=== PATIENT | female | born 1950 | race Caucasian/White ===

== ENCOUNTER → 2023-05-01 08:00 | Outpatient (REF) | payer OTHER, SELFPAY | LOC: RAD 08:00 | PROVIDERS: ATTENDING PHYSICIAN Internal Medicine Hematology & Oncology; FAMILY PHYSICIAN Internal Medicine | DX: C50.512 Malignant neoplasm of lower-outer quadrant of left female breast (principal); Z51.89 Encounter for other specified aftercare; D69.6 Thrombocytopenia, unspecified; C79.51 Secondary malignant neoplasm of bone; G89.3 Neoplasm related pain (acute) (chronic); R93.41 Abnormal radiologic findings on diagnostic imaging of renal pelvis, ureter, or bladder | CPT/HCPCS: 71260; 74177; Q9967 ==

== ENCOUNTER 2023-05-01 20:27 | Inpatient (IN) | payer OTHER, SELFPAY ==
[2023-05-01 17:58] VITALS: BP 150/102
--- NOTE | 2023-05-01 19:03 | ED.GENMED ---
History of Present Illness
General
Chief Complaint: Breathing Problem
Source: patient and family (Daughter)
Exam Limitations: other (Patient is deaf, reads lips)
Time Seen by Provider: 05/01/23 18:23
Travel History
Have you had any contact with someone who has COVID-19?: No
Do you have any symptoms of coronavirus? Fever > 100 degrees, chills, cough, shortness of breath, sore throat, loss of taste or smell, muscle aches, or headache?: No
History of Present Illness
History of Present Illness:
This is a 72 year old female that comes in with c/o abnormal CT of chest. Daughter states that she gets a CT of the chest every 6 months. State that she had this done today and then Dr. Vasquez called and told them to come to the ER as she has a
PE. States that they were not given the Results. Patient states that she is SOB with going up the steps. States that she did have diarrhea today a headache 3 days ago and felt dizzy 3 weeks go. Denies headache or dizziness today. Denies any fever,
chills, chest pain, abd pain, nausea, vomiting, urinary burning.
Past History
Past History
ED Past Medical History: Cancer (Breast CA with Mets to the right hip), HTN and Other (Deaf)
ED Past Surgical History: Other (left breast lumpectomy)
Social History
Tobacco: Non-smoker
Alcohol: None
Personal: Other (Seperated)
Living: with family
Employment: Not employed
Review of Systems
Review of Systems
All Other Systems: ROS reviewed and negative except as documented in HPI and ROS
Constitutional: Reports no symptoms; Denies fever or chills
EENT: Reports no symptoms
Respiratory: Reports trouble breathing (going up steps); Denies cough
Cardiac: Reports no symptoms; Denies chest pain
ABD/GI: Reports diarrhea; Denies abdominal pain, nausea or vomiting
: Reports no symptoms; Denies dysuria, frequency or urgency
Musculoskeletal: Reports no symptoms
Skin: Reports no symptoms
Neurological: Reports no symptoms; Denies dizzy or headache
Psychiatric: Reports no symptoms
Phy Exam
General Physical Exam
General Presentation: no apparent distress
General age: appears stated age
General Skin: warm and dry
General Habitus: elderly
General Mental: alert
General Hydration: appears well hydrated
ENT Exam
ENT Exam: TM's normal, pharynx normal and neck supple
Eye Exam
Eye Exam: EOMI
Cardiovascular Exam
Cardiovascular Exam: regular rate/rhythm, no edema and normal peripheral pulses
Pulmonary Exam
Pulmonary Exam: lungs clear, no respiratory distress, no rales, chest non tender, no crackles, no rhonchi, no wheezing and no cough
Gastrointestinal Exam
Gastrointestinal Exam: normal bowel sounds, non tender, soft, no organomegaly, no pulsatile mass and non distended
Musculoskeletal Exam
Musculoskeletal Exam: full ROM and no edema
Skin Exam
Skin Exam: normal color, warm/dry, no rash and no petechia
Scores
Heart Failure Risk
Heart Failure Risk Score: Not Applicable
Course
Orders/Labs/Results
Orders:
Orders
05/01/23 18:54
Complete Blood Count/With Diff Urgent
Comprehensive Metabolic Panel Urgent
PTT Urgent
Prothrombin Time Urgent
TSH Reflex To Free T4 Urgent
Comment: ADDON
05/01/23 19:12
Add On- LAB Urgent
Tests Added?: TSH with free T4
05/01/23 19:13
PTT Urgent
Comment: Obtain baseline before beginning heparin infusion if not already collected
Heparin 6,300 units IV NOW STA
Pharmacy Request to Place See Dose Instructions PO NOW STA
Discontinue all Active Warfarin orders?: Yes
Nursing to Place Non Medication Order As Directed
Physician Order: PTT 6 hours after initial start of Heparin infusion
05/01/23 19:15
Heparin [id number] Units/250 ml 25,000 units in 250 ml IV PER PROTOCOL
Weight to be used for heparin protocol in kilograms (kg):: 78.3
Protocol:: DVT/PE
PTT Goal Range to be used:: PTT 73 to 111 seconds
Order type:: Initial
INITIAL Infusion Dose (UNITS/KG/hr) & then follow protocol:: 18 units/kg/hr
Infusion Dose in UNITS/hr & then follow protocol (UNITS/hr):: 1,400
INFUSION RATE in mL/hr & then follow protocol (mL/hr):: 14
For DVT/PE algorithm, re-bolus for low PTT?: Yes
PTT less than or equal to 64 seconds:: Re-bolus 80 units/kg (max 10,000units). Increase by 300 units/hr
(+ 3mL/hr)
PTT 64.1 to 72.9 seconds:: Re-bolus 40 units/kg (max 5,000 units). Increase by 200 units/hr
(+ 2mL/hr)
PTT 73 to 111 seconds:: Target Range. No change in rate.
PTT 111.1 to 130.9 seconds:: Decrease rate by 200 units/hr (- 2 mL/hr)
PTT 131 to 199.9 seconds:: HOLD for 1 hr. Then decrease by 200 units/hr (- 2mL/hr)
PTT greater than or equal to 200 seconds:: HOLD for 2 hrs & Notify Provider. Then decrease by 300 units/hr
(- 3mL/hr)
Lab follow-up:: Each change, PTT q6h until 2 consecutive are therapeutic. Then
PTT daily.
05/01/23 20:[address] See Dose Instructions IV DIRECTED
Abnormal Lab Results
05/01/23
18:54
WBC 4.1 L 10^3/uL
(4.8-10.8)
RBC 2.79 L 10^6/uL
(4.20-5.40)
Hgb 10.6 L g/dL
(12.0-16.0)
Hct 30.1 L %
(37.0-47.0)
MCV 107.9 H fL
(81.0-99.0)
MCH 38.0 H pg
(27.0-31.0)
Basophils % 2.2 H %
(0-2)
BUN 21 H mg/dl
(7-17)
Creatinine 1.2 H mg/dL
(0.6-1.0)
Glucose 105 H mg/dl
(70-99)
05/01/23 18:54
05/01/23 18:54
wbc SLIGHTLY LOW. H/H low. Anemia, Dehydration. Glucose nonfasting. PT 13.1 with INR 1.0
Vital Signs
Initial and Last Documented VS:
Initial Vital Signs
Temp Pulse Resp BP Pulse Ox
98.2 F 109 18 150/102 94
05/01/23 17:58 05/01/23 17:58 05/01/23 17:58 05/01/23 17:58 05/01/23 17:58
Last Documented Vital Signs
Temp Pulse Resp BP Pulse Ox
98.2 F 109 18 150/102 94
05/01/23 17:58 05/01/23 17:58 05/01/23 17:58 05/01/23 17:58 05/01/23 17:58
MDM/Problems Addressed
Differential Diagnosis Includes:
Bilateral PE,
MDM/Problems Addressed:
This is a 72 year old female that comes in with c/o abnormal CT scan. Daughter states that she had her [address] of the chest and they were called and told to come to the ER. States that she has pulmonary embolism.
Will get labs and start IV heparin and admit.
Chronic conditions affecting care: Cancer
Acute Exacerbation and/or Progression of Chronic Illness: Cancer
*Radiology
Radiology exam reviewed: radiology read reviewed (CT out patient today- There are large bilateral central pulmonary emboli. There is stable 5cm blastic osseous metastasis in the posterior aspect of the right ischial tuberosity. There is no evidence
of soft tissue metastasis or malignant adenopathy in the chest abdomen or pelvis. There are stable ) and all reviewed NAD by ED Provider (CT cont- postoperative changes in the left breast. There is cholelithiasis. There are several stable low
density thyroid masses measuring up to 15mm which, if clinically indicated, could be best further evaluated and followed with thyroid ultrasound. )
*Pulse Oximetry
Patient hypoxic: no
*EKG
Interpreted by ED Provider?: NA
Rate: EKG- N/A
*[employer] Interpretation
Rate: tachycardiac
Heart Rate: 100
Rhythm: sinus arrhythmia
*Critical Care Note
Total Time (30-74mins, 75-104mins- exclusive of procedures): Not Applicable
ED Attending Note
-
Portions of this chart may have been created with voice recognition software.� Occasional wrong word or��sound alike� substitutions may have occurred due to the inherent limitations of voice recognition software.
Discharge Plan
Departure
Patient Disposition: Admit
Date of Disposition: 05/01/23
Time of Disposition: 19:16
Admit to: Telemetry
Presentation/result/management discussed w/ accepting MD/DO: Hospitalist
Patient with high blood pressure during this ER visit?: Yes
Condition: Good
Covid-19: Not Applicable
Discharge Problem:
Bilateral pulmonary embolism
Prescriptions:
No Action
losartan-hydrochlorothiazide 100-25 mg Tablet
1 tab PO DAILY
alprazolam 0.5 mg Tablet
0.5 mg PO DAILY PRN (Reason: anxiety)
zolpidem [Ambien] 5 mg Tablet
5 mg PO HS
Ibrance 100 mg Tablet
100 mg PO DAILY
Interventions
Interventions:
*Risk Screen - Suicide Last Done: 05/01/23 17:58
*General Assessment Last Done: 05/01/23 17:58
*Neglect/Abuse Screening Last Done: 05/01/23 17:58
*ED COVID-19 Vaccine History Last Done: 05/01/23 18:00
[2023-05-01 19:06] LABS: % Basophils 2.2 % (0-2); % Eosinophils 3.4 % (0-6); % Immature Granulocytes 0.2 % (0-0.5); % Monocytes 8.9 % (1.7-9.3); % Neutrophils 49.3 % (42.2-75.2); Absolute Basophils 0.1 10^3/uL (0-0.2); Absolute Eosinophils 0.1 10^3/uL (0-0.7); Absolute Lymphocytes 1.5 10^3/uL (1.2-3.4); Absolute Monocytes 0.4 10^3/uL (0.1-0.6); Hematocrit 30.1 % (37.0-47.0); Hemoglobin 10.6 g/dL (12.0-16.0); Mean Corp Hgb Conc. 35.2 g/dL (33.0-37.0); Mean Corpuscular Volume 107.9 fL (81.0-99.0); Mean Platelet Volume 9.8 fL (7.4-10.4); Nucleated Red Blood Cells % 0 %; Platelet Count 232 10^3/uL (130-400); Red Blood Cell Count 2.79 10^6/uL (4.20-5.40); Red Cell Dist. Width 14.3 % (11.5-14.5); White Blood Cell Count 4.1 10^3/uL (4.8-10.8)
[2023-05-01 19:08] VITALS: BMI 30.6
[2023-05-01 19:19] LABS: APTT 27.2 Sec (23.4-35.0); PT 13.1 Sec (11.4-14.6)
[2023-05-01 19:22] LABS: ALT (SGPT) 13 U/L (0-35); AST (SGOT) 21 U/L (14-36); Alkaline Phosphatase 60 U/L (38-126); Blood Urea Nitrogen 21 mg/dl (7-17); Calcium 9.4 mg/dl (8.4-10.2); Carbon Dioxide 27 mmol/L (22-30); Chloride 103 mmol/L (98-107); Estimated Creatinine Clearance 43 ml/min; Glucose 105 mg/dl (70-99); Potassium 4.2 mmol/L (3.5-5.1); Sodium 136 mmol/L (135-145); Total Bilirubin 0.6 mg/dl (0.2-1.3); Total Protein 6.8 g/dl (6.3-8.2)
--- NOTE | 2023-05-01 19:53 | HPS.HSE ---
Family Physician
-
Family Physician: Lauro Maria
Chief Complaint
-
SOB
History of Present Illness
Patient is a 72y F with PMH significant for breast cancer who presents to ED for evaluation of abnormal CT scan. Patient has breast cancer with bony met (to the right ischium) and is followed by Dr. Vasquez. She reports some recent dyspnea
with activity - such as climbing stairs, etc. No chest pain. No prior history of DVT / PE. Patient underwent outpatient CT scan this AM and was noted to have large, bilateral pulmonary emboli. She was called and advised to present to the ED for
admission.
Patient is resting comfortably in the ED in no acute distress.
Patient states that her parents both had history of blood clots.
Medical History
Past Medical History
Past Medical History: Reports Other
Additional Past Medical History:
Metastatic Breast Cancer s/p Lumpectomy, XRT and on Chemo
Hypertension
Anxiety / Insomnia
Past Surgical History: Reports Other
Additional Past Surgical History:
Left Lumpectomy
Social History
Tobacco: Non-smoker
Alcohol: None
Drug: None
Family History
Family History: Other (Mother / Father: Blood clots)
Allergies / Home Medications
Allergies reflects when Allergies were last updated in [facility].
Home Medications with original date entered in [facility]
Allergy/Medication List:
Allergies
Allergy/AdvReac Type Severity Reaction Status Date / Time
No Known Drug Allergies Allergy Unknown Verified 07/17/15 10:28
seasonal Allergy sneezing,runny Uncoded 07/17/15 10:28
nose,itchy
eyes
Home Medications
alprazolam 0.5 mg tablet 0.5 mg PO DAILY PRN anxiety 05/01/23
losartan 100 mg-hydrochlorothiazide 25 mg tablet 1 tab PO DAILY 05/01/23
palbociclib 100 mg tablet (Ibrance) 100 mg PO DAILY 05/01/23
zolpidem 5 mg tablet (Ambien) 5 mg PO HS 05/01/23
Review of Systems
-
History Source: Patient
A 12 point ROS was completed and negative except as noted: Yes
Constitutional: Reports Fatigue; Denies Fever or Chills
Respiratory: Reports Trouble Breathing; Denies Cough
Cardiac: Denies Chest Pain or Palpitations
Abdomen/GI: Denies Abdominal Pain, Nausea, Vomiting or Diarrhea
Musculoskeletal: Denies Joint Pain or Edema
Neurological: Denies Dizzy or Headache
Psych: Denies Depression or Anxiety
Physical Exam
Vital Signs
Vital Signs
Temp Pulse Resp BP Pulse Ox
98.2 F 109 18 150/102 94
05/01/23 17:58 05/01/23 17:58 05/01/23 17:58 05/01/23 17:58 05/01/23 17:58
Physical Exam
General: Other (72y F in no acute distress.)
HEENT: Moist mucous membranes, PERRLA and Other (Deaf.)
Respiratory: Clear; No Wheezes, Rales or Rhonchi
Cardiac: S1/S2 and Regular Rhythm; No Murmur
GI: Soft, Non Tender, Non Distended and Normal Bowel Sounds
Musculoskeletal: No Clubbing, No Cyanosis and No Edema
Neuro: AO x 3
Laboratory Results
-
05/01/23 18:54
05/01/23 18:54
Laboratory Results
PT 13.1 Sec (11.4-14.6) 05/01/23 18:54
INR 1.00 05/01/23 18:54
APTT 27.2 Sec (23.4-35.0) 05/01/23 18:54
Total Bilirubin 0.6 mg/dl (0.2-1.3) 05/01/23 18:54
AST 21 U/L (14-36) 05/01/23 18:54
ALT 13 U/L (0-35) 05/01/23 18:54
Alkaline Phosphatase 60 U/L (38-126) 05/01/23 18:54
Impression/Plan
-
A/P: Patient is a 72y F with PMH significant for metastatic breast cancer who presents to ED after outpatient CT done today shows bilateral pulmonary emboli.
Bilateral Pulmonary Emboli
- Admit to monitored bed for further evaluation and treatment.
- IV heparin infusion for now.
- Follow for any issues with oxygenation, chest pain, dyspnea, etc.
- Check Echo in AM.
- Hematology / Oncology evaluation.
- Suspect that patient will benefit from lifelong anticoagulation given her malignancy and family history of VTE.
- Currently she has remarkably mild symptoms (only BRUNO and fatigue) given clot burden.
Benign Hypertension
- BP elevated in the ED.
- Continue home med regimen.
- Hydralazine as needed for very high blood pressures.
- Adjust regimen as needed for improved control.
Metastatic Breast Cancer
- Stable. No new lesions appreciated on CT scan done this AM.
- Known R ischial tuberosity met is unchanged from prior.
- Patient is on daily Ibrance and receives a chemo infusion once monthly (? agent).
- Continue Ibrance as an inpatient.
- Oncology eval as noted above.
Hearing Loss
- Patient is deaf and communicates primarily by lip-reading.
DVT Prophylaxis: On IV Heparin
Code Status: Full
[2023-05-01 19:58] LABS: TSH Reflex To Free T4 3.03 uIU/ml (0.47-4.68)
[2023-05-01 20:01] VITALS: BP 138/81
[2023-05-01 20:19] VITALS: BP 138/81
[2023-05-01] MEDS: HEPARIN 6300 UNITS IV (20:28)
[2023-05-01] MEDS: HEPARIN 25000 UNITS/250 ML IV (20:28)
[2023-05-01 21:00] VITALS: BP 141/92
[2023-05-01 22:00] VITALS: BP 139/81
[2023-05-01 22:34] VITALS: BP 139/81
[2023-05-01] MEDS: AMBIEN 5 MG PO (23:59)
[2023-05-02] VITALS (9 sets, daily range): BP systolic 116–141; BP diastolic 63–84; PULSE 79; O2SAT 97; BMI 31.4; BMI 30.7
[2023-05-02 01:49] LABS: APTT > 200 Sec (23.4-35.0)
[2023-05-02 06:52] LABS: Hematocrit 30.1 % (37.0-47.0); Hemoglobin 10.6 g/dL (12.0-16.0); Mean Corp Hgb Conc. 35.2 g/dL (33.0-37.0); Mean Corpuscular Hgb 38.3 pg (27.0-31.0); Mean Corpuscular Volume 108.7 fL (81.0-99.0); Mean Platelet Volume 10.1 fL (7.4-10.4); Platelet Count 221 10^3/uL (130-400); Red Blood Cell Count 2.77 10^6/uL (4.20-5.40); Red Cell Dist. Width 14.3 % (11.5-14.5); White Blood Cell Count 4.5 10^3/uL (4.8-10.8)
[2023-05-02 07:16] LABS: Blood Urea Nitrogen 15 mg/dl (7-17); Calcium 8.8 mg/dl (8.4-10.2); Carbon Dioxide 27 mmol/L (22-30); Chloride 107 mmol/L (98-107); Estimated Creatinine Clearance 43 ml/min; Glucose 98 mg/dl (70-99); Potassium 3.6 mmol/L (3.5-5.1); Sodium 137 mmol/L (135-145)
[2023-05-02] MEDS: HYZAAR 100-25 TABLET 1 TAB PO (09:01)
--- NOTE | 2023-05-02 09:11 | CON.ONC ---
Impression
Impression
Metastatic breast cancer (lumpectomy, XRT, Adriamycin 2016, currently on Ibrance)
Monthly Faslodex/[id number] Zometa. Last Faslodex: 04/14/23
Acute bilateral pulmonary emboli
Dyspnea on exertion
Macrocytic anemia
Acute kidney injury
Hearing impairment
Strong family hx of VTE
Plan
Plan
05/01 WBC 4.5, Hgb 10.6, PLT 221
Transfuse as needed to maintain Hgb >7, PLT >20
Last dose Ibrance: 04/30 AM
Continue Ibrance: 1 PO daily for 21 days on, 7 days off, Q28 days
Follow CBC with diff daily, monitor counts
Continue heparin gtt
Wean oxygen as able
ECHO today
Additional lab work has been ordered and pending
APLA testing due to reports of family hx of VTE with outpatient follow up: Eliquis/Coumadin (await APLA panel)
Patient will require lifelong anticoagulation upon discharge. Patient and daughter verbalize understanding.
[facility] office has been updated of clinical status. She is scheduled for follow up with WATSON Rodriguez, 05/11 @ 13:15
We will continue to follow. Await labs.
Patient History
History of Present Illness
Jana Colunga is a hearing-impaired 72 year old female with history of metastatic breast cancer known to Dr. Vasquez with [facility]. She presented to the ER last evening, 04/30, with complaints of mild dyspnea on exertion following an abnormal
outpatient CT. She has routine imaging every 6 months for monitoring of disease progression. CT revealed large, bilateral pulmonary emboli and she was referred to the ER for further evaluation. She notes family history of blood clots. Her daughter
is at bedside assisting with communication. Patient is deaf, however, she can read lips and communicate well. She denies acute distress. She has noticed intermittent dizziness, chills, and a headache which has resolved. She complains of persistent
dry cough. She denies weight loss, poor appetite, N/V/D or bloody stools. Her last dose of Ibrance was taken yesterday morning, 04/30. She receives Zometa [id number] and Faslodex monthly with [facility].
Past-Medical/Surgical History
Metastatic breast cancer (lumpectomy, XRT, Adriamycin 2015, currently on Ibrance w/ monthly Faslodex)
Hypertension
Anxiety/insomnia
Hearing impairment
Left foot surgery
Right elbow fracture
Family hx breast cancer
Patient Medication
Medication Instructions Recorded Confirmed Last Taken Type
Metamucil Fiber Gummies 1 gummy PO DAILY 05/01/23 05/01/23 04/30/23 History
alprazolam 0.5 mg tablet 0.5 mg PO DAILY PRN anxiety 05/01/23 05/01/23 05/01/23 History
losartan 100 1 tab PO DAILY 05/01/23 05/01/23 05/01/23 06:00 History
mg-hydrochlorothiazide 25 mg tablet
ondansetron 4 mg disintegrating 4 mg PO TIDPRN PRN nausea/vomiting 05/01/23 05/01/23 04/29/23 History
tablet
palbociclib 100 mg tablet (Ibrance) 100 mg PO DIRECTED 05/01/23 05/01/23 05/01/23 11:30 History
zolpidem 5 mg tablet (Ambien) 5 mg PO HS PRN sleep 05/01/23 05/01/23 05/01/23 01:00 History
Active Medications
Generic Name Dose Route Start Last Admin
Trade Name Freq PRN Reason Stop Dose Admin
Acetaminophen 650 mg 05/01/23 22:32
Acetaminophen 325 Mg Tablet PO 05/29/23 22:31
Q4HPRN PRN
Mild Pain / Temp > 101
Alprazolam 0.5 mg 05/01/23 22:32
Alprazolam 0.5 Mg Tablet PO 05/29/23 22:31
DAILY PRN
anxiety
HCTZ/Losartan Potassium 1 tab 05/02/23 08:00 05/02/23 09:01
Losartan (100 Mg)/Hydrochlorothiazide (25 Mg) Tablet PO 05/30/23 07:59 1 tab
DAILY ALYX Administration
Heparin Sodium 6,300 units 05/01/23 20:23
Heparin 80 Units/Kg Iv Rebolus IV 05/29/23 20:22
PRN PRN
PTT < OR = 64 seconds
Heparin Sodium 3,100 units 05/01/23 20:24
Heparin 40 Units/Kg Iv Rebolus IV 05/29/23 20:23
PRN PRN
PTT = 64.1 to 72.9 seconds
Heparin Sodium 25,000 units in 250 mls @ 0 mls/hr 05/01/23 19:15 05/01/23 20:28
Heparin 55968 Units/250 Ml IV 250 mls
PER PROTOCOL ALYX Administration
Protocol
Per Protocol
Palbociclib [Ibrance 0 mg 05/02/23 08:00
] 100 Mg Tablet Po PO 05/30/23 07:59
Daily DAILY ALYX
Sodium Chloride 0 flush 05/01/23 23:00
Sodium Chloride 0.9% (Flush) Syringe IV 05/29/23 22:59
PER PROTOCOL ALYX
Zolpidem Tartrate 5 mg 05/01/23 22:32 05/01/23 23:59
Zolpidem Tartrate 5 Mg Tablet PO 05/29/23 22:31 5 mg
HS ALYX Administration
Review of Systems
-
Unable to obtain full review of systems at this time due to: Language Barrier (hearing impaired)
History Source: Patient, Family, Coordinated Provider and Records
Constitutional: Reports Chills; Denies Fever, Weight Loss or Night Sweats
EENT: Reports No Symptoms
Respiratory: Reports Cough (dry, nonproductive)
Cardiac: Reports No Symptoms
GI: Reports No Symptoms
Breast: Reports N/A
: Reports No Symptoms
Musculoskeletal: Reports No Symptoms
Skin: Reports No Symptoms
Neuro: Reports No Symptoms
Endocrine: Reports No Symptoms
Hematologic/Lymphatic: Reports No Symptoms
Allergy / Immunology: Reports No Symptoms
Psych: Reports No Symptoms
Physical Exam
-
Patient is resting comfortably on the stretcher. She denies acute distress. She has not been on anticoagulation in the past. She is requesting to use the commode.
General: Well Developed, Well Nourished, No Apparent Distress, Comfortable, Conversant, Appears Chronically Ill and Obese
HEENT: Negative Jaundice
Cardiology: S1, S2 and Other (Rate: 80s)
Pulmonary: Other (coarse, diminished, scattered wheezes, 1L oxygen via nasal cannula )
GI: Normal Bowel Sounds
Genito-Urinary: Deferred by me
Musculoskeletal: No Cyanosis, No Edema and Other (negative Chepe's sign)
Extremities: Pulses Present; Negative Phlebitic Signs
Neurology: Non Focal
Skin: Warm, Dry and Other (pallor)
Hematologic / Lymphatic: No Lymphadenopathy and No Petechiae
Psych: Calm
Labs
Lab Results
WBC 4.5 10^3/uL (4.8-10.8) L 05/02/23 06:10
RBC 2.77 10^6/uL (4.20-5.40) L 05/02/23 06:10
Hgb 10.6 g/dL (12.0-16.0) L 05/02/23 06:10
Hct 30.1 % (37.0-47.0) L 05/02/23 06:10
MCV 108.7 fL (81.0-99.0) H 05/02/23 06:10
MCH 38.3 pg (27.0-31.0) H 05/02/23 06:10
MCHC 35.2 g/dL (33.0-37.0) 05/02/23 06:10
RDW 14.3 % (11.5-14.5) 05/02/23 06:10
Plt Count 221 10^3/uL (130-400) 05/02/23 06:10
MPV 10.1 fL (7.4-10.4) 05/02/23 06:10
Abs Immat Gran (auto) 0.0 10^3/uL (0-0.05) 05/01/23 18:54
Absolute Neuts (auto) 2.0 10^3/uL (1.4-6.5) 05/01/23 18:54
Absolute Lymphs (auto) 1.5 10^3/uL (1.2-3.4) 05/01/23 18:54
Absolute Monos (auto) 0.4 10^3/uL (0.1-0.6) 05/01/23 18:54
Absolute Eos (auto) 0.1 10^3/uL (0-0.7) 05/01/23 18:54
Absolute Basos (auto) 0.1 10^3/uL (0-0.2) 05/01/23 18:54
Immature Gran % 0.2 % (0-0.5) 05/01/23 18:54
Neutrophils % 49.3 % (42.2-75.2) 05/01/23 18:54
Lymphocytes % 36.0 % (20.5-51.1) 05/01/23 18:54
Monocytes % 8.9 % (1.7-9.3) 05/01/23 18:54
Eosinophils % 3.4 % (0-6) 05/01/23 18:54
Basophils % 2.2 % (0-2) H 05/01/23 18:54
Creatinine 1.2 mg/dL (0.6-1.0) H 05/02/23 06:10
Vital Signs
Vital Signs
Temp Pulse Resp BP Pulse Ox
98.1 F 76 16 134/77 98
05/02/23 07:00 05/02/23 07:00 05/02/23 07:00 05/02/23 02:00 05/02/23 07:00
05/01/23 CT c/a/p: There are large bilateral central pulmonary emboli.There is stable 5 cm blastic osseous metastasis in the posterior aspect of the right ischial tuberosity, There is no evidence of soft tissue metastasis or malignant adenopathy in
the chest abdomen or pelvis. There are stable postoperative changes in the left breast. There is cholelithiasis. There are several stable low density thyroid masses measuring up to 15 mm which, if clinically indicated, could be best further
evaluated and followed with thyroid ultrasound
[2023-05-02 09:47] LABS: Reticulocyte Count 2.4 % (0.4-2.8)
[2023-05-02 09:57] LABS: INR 1.15; PT 14.5 Sec (11.4-14.6)
[2023-05-02 09:59] LABS: APTT 80.1 Sec (23.4-35.0)
[2023-05-02 10:00] LABS: D-Dimer 1.83 ug/mlFEU (0.00-0.50)
[2023-05-02 10:32] LABS: LDH 270 U/L (120-246)
--- NOTE | 2023-05-02 11:37 | W.PN.HOSP.TC ---
Today's Communication/Plan
-
echo
assess for home O2
CM to [facility] Eliquis
Assessment / Plan
Assessment / Plan
pt is a 72 year old female
Acute Bilateral Pulmonary Emboli--stable--cont IV heparin drip--await echo--apprec heme/onc--CM to [facility] Eliquis
�
Essential Hypertension�- BP elevated in the ED- Continue home med regimen- Hydralazine as needed for very high blood pressures- Adjust regimen as needed for improved control.
Metastatic Breast Cancer- Stable.� No new lesions appreciated on CT scan done this AM- Known R ischial tuberosity met is unchanged from prior- Patient is on daily Ibrance and receives a chemo infusion once monthly (? agent)- Continue Ibrance as an
inpatient- Oncology eval as noted above.
Hearing Loss- Patient is deaf and communicates primarily by lip-reading.
DVT Prophylaxis:� On IV Heparin
Code Status:� Full
Anticipated Discharge: Within 24 hours
Subjective/Interval History
-
Date of Service: May 02, 2023
pt without cp or SOB
Objective Data
-
Labs:
Laboratory Results
05/02/23 05/02/23 05/02/23
01:11 06:00 06:10
WBC 4.5 L
Hgb 10.6 L
Hct 30.1 L
Plt Count 221
PT Cancelled
INR Cancelled
APTT > 200 H* Pending
Sodium 137
Potassium 3.6
Chloride 107
Carbon Dioxide 27
BUN 15
Creatinine 1.2 H
Glucose 98
Calcium 8.8
05/02/23 05/02/23
09:31 15:30
WBC
Hgb
Hct
Plt Count
PT 14.5
INR 1.15
APTT 80.1 H Pending
Sodium
Potassium
Chloride
Carbon Dioxide
BUN
Creatinine
Glucose
Calcium
Vital Signs:
max temp for 24 hours
05/01/23
22:34
Temp 98.4 F
Vital Signs
Temp Pulse Resp BP Pulse Ox
98.4 F 73 15 134/77 96
05/02/23 11:16 05/02/23 11:16 05/02/23 11:16 05/02/23 02:00 05/02/23 11:33
Review of Systems
-
All other systems: Reviewed and negative
Physical Exam
-
General: Well Developed, Well Nourished and No Apparent Distress
HEENT: Normocephalic, Atraumatic and Hearing Impaired (pt deaf and reads lips)
Respiratory: Clear to Auscultation; Negative Wheezes, Rales, Rhonchi or Crackles
Cardiac: Regular Rhythm and S1/S2; Negative Murmur
GI: Soft, Nontender, Nondistended and Normal Bowel Sounds
Musculoskeletal: No Clubbing, No Cyanosis and No Edema
[2023-05-02 11:39] LABS: Folate 18.2 ng/ml (2.76-20)
--- NOTE | 2023-05-02 11:40 | CM ---
Addendum entered by Marilyn Hassan 05/02/23 11:54:
patient daughter updated with coupon and indicated that the cost was acceptable.
Addendum entered by Marilyn Hassan 05/02/23 11:49:
eliquis cost is 90$ for 30 days. CM will provide coupon and update patient and daughter.
Original Note:
Patient seen at bedside with physician. Patient daughter also present. Patient states that she lives with her family in a 3 story home. Patient has no DME at home and per daughter and patient no home O2. In the past she has had an inhaler only.
Patient PCP is Dr. Breen and they use the [facility] on [facility]. Patient has not needed any DME or VN/SNF in the past. Patient plan is to go home with family and is open having home O2 testing. CM to confirm perera of eliquis at
physician request. CM will continue to follow for discharge planning needs.
Plan; home with VN vs home with no VN; watch for home O2.
--- NOTE | 2023-05-02 14:52 | CON.ONC ---
Impression
Impression
Metastatic breast cancer (lumpectomy, XRT, Adriamycin 2016, currently on Ibrance)
Monthly Faslodex/R4ioohr Zometa. Last Faslodex: 04/14/23
Acute bilateral pulmonary emboli
Dyspnea on exertion
Macrocytic anemia
Acute kidney injury
Hearing impairment
Strong family hx of VTE
Plan
Plan
05/01 WBC 4.5, Hgb 10.6, PLT 221
Transfuse as needed to maintain Hgb >7, PLT >20
Last dose Ibrance: 04/30 AM
Continue Ibrance: 1 PO daily for 21 days on, 7 days off, Q28 days
Follow CBC with diff daily, monitor counts
Continue heparin gtt
Wean oxygen as able
ECHO today
Additional lab work has been ordered and pending
APLA testing due to reports of family hx of VTE with outpatient follow up: Eliquis/Coumadin (await APLA panel)
Patient will require lifelong anticoagulation upon discharge. Patient and daughter verbalize understanding.
[place] office has been updated of clinical status. She is scheduled for follow up with WATSON Rodriguez, 05/11 @ 13:15
We will continue to follow. Await labs.
Patient History
History of Present Illness
Jana�Cristine�is admitted with bilateral pulmonary emboli w/o right heart strain noted incidentally on retstaging studies 05/01/2023 for which she demonstrated stable bone mets. currently�on�treatment�with�Faslodex,�Ibrance,
and�Zometa.�She�started�Faslodex�in�[place]�2021�and�Ibrance�in�[place]�202.�Patient�denies�unintentional�weight�loss,�loss�of appetite,�cough,�shortness�of�breath,�abdominal�pain,�headache,�or�new�bony�pain @ last office visit. She has no prior hx of
VTE.
Past-Medical/Surgical History
HTN;BILATERAL SENSORINEURAL HEARING LOSS: cholelithiasis
Patient Medication
Medication Instructions Recorded Confirmed Last Taken Type
Metamucil Fiber Gummies 1 gummy PO DAILY 05/01/23 05/01/23 04/30/23 History
alprazolam 0.5 mg tablet 0.5 mg PO DAILY PRN anxiety 05/01/23 05/01/23 05/01/23 History
losartan 100 1 tab PO DAILY 05/01/23 05/01/23 05/01/23 06:00 History
mg-hydrochlorothiazide 25 mg tablet
ondansetron 4 mg disintegrating 4 mg PO TIDPRN PRN nausea/vomiting 05/01/23 05/01/23 04/29/23 History
tablet
palbociclib 100 mg tablet (Ibrance) 100 mg PO DIRECTED 05/01/23 05/01/23 05/01/23 11:30 History
zolpidem 5 mg tablet (Ambien) 5 mg PO HS PRN sleep 05/01/23 05/01/23 05/01/23 01:00 History
Active Medications
Generic Name Dose Route Start Last Admin
Trade Name Freq PRN Reason Stop Dose Admin
Acetaminophen 650 mg 05/01/23 22:32
Acetaminophen 325 Mg Tablet PO 05/29/23 22:31
Q4HPRN PRN
Mild Pain / Temp > 101
Alprazolam 0.5 mg 05/01/23 22:32
Alprazolam 0.5 Mg Tablet PO 05/29/23 22:31
DAILY PRN
anxiety
HCTZ/Losartan Potassium 1 tab 05/02/23 08:00 05/02/23 09:01
Losartan (100 Mg)/Hydrochlorothiazide (25 Mg) Tablet PO 05/30/23 07:59 1 tab
DAILY ALYX Administration
Heparin Sodium 6,300 units 05/01/23 20:23
Heparin 80 Units/Kg Iv Rebolus IV 05/29/23 20:22
PRN PRN
PTT < OR = 64 seconds
Heparin Sodium 3,100 units 05/01/23 20:24
Heparin 40 Units/Kg Iv Rebolus IV 05/29/23 20:23
PRN PRN
PTT = 64.1 to 72.9 seconds
Heparin Sodium 25,000 units in 250 mls @ 0 mls/hr 05/01/23 19:15 05/01/23 20:28
Heparin 37931 Units/250 Ml IV 250 mls
PER PROTOCOL ALYX Administration
Protocol
Per Protocol
Palbociclib [Ibrance 0 mg 05/02/23 08:00
] 100 Mg Tablet Po PO 05/30/23 07:59
Daily DAILY ALYX
Sodium Chloride 0 flush 05/01/23 23:00
Sodium Chloride 0.9% (Flush) Syringe IV 05/29/23 22:59
PER PROTOCOL ALYX
Zolpidem Tartrate 5 mg 05/01/23 22:32 05/01/23 23:59
Zolpidem Tartrate 5 Mg Tablet PO 05/29/23 22:31 5 mg
HS ALYX Administration
Review of Systems
-
History Source: Patient and Records
All Other Systems: Reviewed and Negative
Physical Exam
-
General: Well Nourished and No Apparent Distress
HEENT: Moist Mucous Membranes
Cardiology: Normal Sinus Rhythm
Pulmonary: Clear
GI: Soft and Normal Bowel Sounds
Musculoskeletal: No Clubbing, No Cyanosis and No Edema
Extremities: Pulses Present
Neurology: Non Focal
Labs
Lab Results
WBC 4.5 10^3/uL (4.8-10.8) L 05/02/23 06:10
RBC 2.77 10^6/uL (4.20-5.40) L 05/02/23 06:10
Hgb 10.6 g/dL (12.0-16.0) L 05/02/23 06:10
Hct 30.1 % (37.0-47.0) L 05/02/23 06:10
MCV 108.7 fL (81.0-99.0) H 05/02/23 06:10
MCH 38.3 pg (27.0-31.0) H 05/02/23 06:10
MCHC 35.2 g/dL (33.0-37.0) 05/02/23 06:10
RDW 14.3 % (11.5-14.5) 05/02/23 06:10
Plt Count 221 10^3/uL (130-400) 05/02/23 06:10
MPV 10.1 fL (7.4-10.4) 05/02/23 06:10
Abs Immat Gran (auto) 0.0 10^3/uL (0-0.05) 05/01/23 18:54
Absolute Neuts (auto) 2.0 10^3/uL (1.4-6.5) 05/01/23 18:54
Absolute Lymphs (auto) 1.5 10^3/uL (1.2-3.4) 05/01/23 18:54
Absolute Monos (auto) 0.4 10^3/uL (0.1-0.6) 05/01/23 18:54
Absolute Eos (auto) 0.1 10^3/uL (0-0.7) 05/01/23 18:54
Absolute Basos (auto) 0.1 10^3/uL (0-0.2) 05/01/23 18:54
Immature Gran % 0.2 % (0-0.5) 05/01/23 18:54
Neutrophils % 49.3 % (42.2-75.2) 05/01/23 18:54
Lymphocytes % 36.0 % (20.5-51.1) 05/01/23 18:54
Monocytes % 8.9 % (1.7-9.3) 05/01/23 18:54
Eosinophils % 3.4 % (0-6) 05/01/23 18:54
Basophils % 2.2 % (0-2) H 05/01/23 18:54
Creatinine 1.2 mg/dL (0.6-1.0) H 05/02/23 06:10
Vital Signs
Vital Signs
Temp Pulse Resp BP Pulse Ox
97.9 F 84 16 134/77 94
05/02/23 14:43 05/02/23 14:43 05/02/23 14:43 05/02/23 02:00 05/02/23 14:43
[2023-05-02 16:08] LABS: APTT 69.9 Sec (23.4-35.0)
[2023-05-02 16:09] LABS: Vitamin B12 272 pg/ml (239-931)
[2023-05-02] MEDS: HEPARIN 3100 UNITS IV (16:18)
[2023-05-02] MEDS: HEPARIN 25000 UNITS/250 ML IV (19:34)
--- NOTE | 2023-05-02 21:30 | PTCARENOTE ---
Received pt from ED via bed. Pt Heparin gtt going at 1300U/Hr. AAOx3, patient is deaf but able to read lips and make needs known. No complaints of pain or shortness of breath. Daughter at bedside. VSS. Oriented pt to floor, call allen within reach.
[2023-05-02] MEDS: AMBIEN 5 MG PO (23:27)
[2023-05-03 03:25] VITALS: BP 115/68
[2023-05-03 06:00] VITALS: BMI 29.8
[2023-05-03 07:35] LABS: Hematocrit 28.9 % (37.0-47.0); Mean Corp Hgb Conc. 34.6 g/dL (33.0-37.0); Mean Corpuscular Hgb 38.2 pg (27.0-31.0); Mean Corpuscular Volume 110.3 fL (81.0-99.0); Mean Platelet Volume 10.2 fL (7.4-10.4); Platelet Count 229 10^3/uL (130-400); Red Blood Cell Count 2.62 10^6/uL (4.20-5.40); Red Cell Dist. Width 14.3 % (11.5-14.5); White Blood Cell Count 3.8 10^3/uL (4.8-10.8)
[2023-05-03 07:46] LABS: ALT (SGPT) 12 U/L (0-35); AST (SGOT) 18 U/L (14-36); Albumin 3.2 g/dl (3.5-5.0); Alkaline Phosphatase 55 U/L (38-126); Blood Urea Nitrogen 15 mg/dl (7-17); Calcium 8.6 mg/dl (8.4-10.2); Carbon Dioxide 26 mmol/L (22-30); Chloride 109 mmol/L (98-107); Estimated Creatinine Clearance 43 ml/min; Glucose 103 mg/dl (70-99); Magnesium 2.1 mg/dl (1.6-2.3); Potassium 3.9 mmol/L (3.5-5.1); Sodium 135 mmol/L (135-145); Total Bilirubin 0.4 mg/dl (0.2-1.3); Total Protein 5.7 g/dl (6.3-8.2)
[2023-05-03 07:50] VITALS: BP 92/59
[2023-05-03 07:54] LABS: APTT 79.3 Sec (23.4-35.0)
[2023-05-03] MEDS: HYZAAR 100-25 TABLET 1 TAB PO (09:26)
--- NOTE | 2023-05-03 09:51 | W.PN.HOSP.TC ---
Addendum entered and electronically signed by Mahsa Carlson MD 05/03/23 13:10:
total DC time 35 min
Original Note:
Today's Communication/Plan
-
DC home later
Assessment / Plan
Assessment / Plan
pt is a 72 year old female
Acute Bilateral Pulmonary Emboli--stable--IV heparin drip to Eliquis 10 mg BID for 7 days then 5 mg BID thereafter.
echo unrevealing: EF 60-65%, no right heart strain.
heme/onc on board due to strong family h/o VTE, antiphospholipid Ab sent, can follow up results outpt with heme
Patient will require lifelong anticoagulation upon discharge. Patient and daughter verbalize understanding.
Essential Hypertension
Continue home med regimen Losartan/HCTZ- informed pt and daughter to follow up with PCP to consider alternative regimen with mildly elevated SCr at 1.2
Metastatic Breast Cancer- Stable.�
No new lesions appreciated on CT scan done- Known R ischial tuberosity met is unchanged from prior
Patient is on daily Ibrance and receives a chemo infusion once monthly (? agent)- Continue Ibrance as an inpatient- Oncology eval as noted above.
Hearing Loss- Patient is deaf and communicates primarily by lip-reading.
DVT Prophylaxis:� On IV Heparin -> Eliquis
Code Status:� Full
DW daughter at bedside
Anticipated Discharge: Today
Subjective/Interval History
-
Date of Service: May 03, 2023
Objective Data
-
Labs:
Laboratory Results
05/02/23 05/03/23 05/03/23
22:04 06:41 13:00
WBC 3.8 L
Hgb 10.0 L
Hct 28.9 L
Plt Count 229
APTT 150.0 H 79.3 H Pending
Sodium 135
Potassium 3.9
Chloride 109 H
Carbon Dioxide 26
BUN 15
Creatinine 1.2 H
Glucose 103 H
Calcium 8.6
Total Bilirubin 0.4
AST 18
ALT 12
Alkaline Phosphatase 55
Vital Signs:
Vital Signs
Temp Pulse Resp BP Pulse Ox
37.0 C 79 16 123/76 94
05/03/23 07:50 05/03/23 09:26 05/03/23 07:50 05/03/23 09:26 05/03/23 09:22
I&O
05/02/23 05/03/23 05/04/23
06:59 06:59 06:59
Intake Total 480 / 480
Balance 480 / 480
Review of Systems
-
All other systems: Reviewed and negative
Physical Exam
-
General: Well Developed, Well Nourished, No Apparent Distress and Comfortable
HEENT: Normocephalic, Atraumatic and Hearing Impaired (pt deaf and reads lips)
Respiratory: Clear to Auscultation; Negative Wheezes, Rales, Rhonchi or Crackles
Cardiac: Regular Rhythm and S1/S2; Negative Murmur
GI: Soft, Nontender, Nondistended and Normal Bowel Sounds
Musculoskeletal: No Clubbing, No Cyanosis and No Edema
Neuro: Awake and Alert
Psych: Calm
Data Reviewed
-
Diagnostic Radiology: Report Reviewed by me
Ultrasound: Report Reviewed by me
Labs: Labs Reviewed by me
[2023-05-03] MEDS: ELIQUIS 10 MG PO (11:06)
--- NOTE | 2023-05-03 11:23 | CM ---
Patient seen at bedside with daughter and son also present. CM provided IMM and signed form placed on chart. patient for discharge home today, and declined VN supports following discussion with patient daughter and son. CM will continue to follow
for discharge planning needs.
Plan; home with no needs anticipated at this time
[2023-05-03 11:45] VITALS: BP 122/75
--- NOTE | 2023-05-03 13:03 | W.DCSUMMARY ---
Discharge Summary
Discharge Data
Date of Admission: 05/01/23
Date of Discharge: 05/03/23
-
Pending Results: No
Hospital Course
Principal Diagnosis:
Acute Bilateral Pulmonary Emboli which is stable, without right heart strain or hemodynamic instability.
Chronic Diagnoses:�
Essential Hypertension on Losartan/HCTZ
Metastatic Breast Cancer- Stable.�
Hearing Loss- Patient is deaf and communicates primarily by lip-reading.
Consultations:�
Oncology
Procedures:�
None
Clinical course:�
This is a 72-year-old female, with past medical history as stated above, who presented with�abnormal CT scan and some recent dyspnea with activity.
Problem 1:
Acute Bilateral Pulmonary Emboli which is stable, without right heart strain or hemodynamic instability.
She received IV heparin drip while in the hospital and was discharged with�Eliquis 10 mg twice daily for 7 days, then 5 mg BID thereafter.
Her echo obtained during her hospital stay was unrevealing: EF 60-65%, no right heart strain.
She was seen by [facility] and antiphospholipid antibody was sent. She can follow-up the results outpatient.
As for the rest of her medical problems, they were stable during her hospital stay.
Discharge Plan
-
Patient Disposition: Home (Routine Discharge)
Discharge Diagnosis/Procedures: Acute Bilateral Pulmonary Emboli (stable); Metastatic Breast Cancer (Stable).
Condition: Fair
Diet: As tolerated
Activity: As tolerated
Driving Restrictions: As prior to admission
Blood Work: CBC and BMP in 1 week, result to PCP
Activity Restrictions/Additional Instructions:
Follow up antiphospholipid Antibody with heme outpatient.
Discuss with your PCP alternative BP regimen.
Referrals:
Lauro Maria MD [Family Provider] - in less than 1 week
Additional Discharge Medication Instructions: Take Eliquis 10 mg twice daily for 7 days, then 5 mg twice daily thereafter.
Prescriptions:
New
Eliquis 5 mg tablet
10 mg PO BID 7 Days Qty: 28 0RF
Eliquis 5 mg tablet
5 mg PO BID Qty: 60 0RF
Rx Instructions:
continue 5 mg BID AFTER 10 mg BID
Continued
losartan-hydrochlorothiazide 100-25 mg Tablet
1 tab PO DAILY
alprazolam 0.5 mg Tablet
0.5 mg PO DAILY PRN (Reason: anxiety)
Patient Comments:
05/01/2023, pt. filled this med. on 12/06/2022 for 30 tablets per PDMP.
zolpidem [Ambien] 5 mg Tablet
5 mg PO HS PRN (Reason: sleep)
Patient Comments:
05/01/2023, pt. filled this med. on 03/26/2023 for 90 tablets per PDMP.
Ibrance 100 mg Tablet
100 mg PO DIRECTED
Rx Instructions:
05/01/2023, 3 weeks on and 1 week off.
ondansetron 4 mg Tablet,Disintegrating
4 mg PO TIDPRN PRN (Reason: nausea/vomiting)
Metamucil Fiber Gummies
1 gummy PO DAILY
Discharge Orders:
Discharge Patient (As Directed); Ordered 05/03/23
Ordered By: Mahsa Carlson
Discharge Date and Time
Discharge Date/Time: 05/03/23 12:30
[2023-05-03 17:01] LABS: Haptoglobin 92 mg/dL (30-200)
[2023-05-05 00:47] LABS: Beta-2-Glycoprotein I Ab. IgA <10 SAU (<=20); Beta-2-Glycoprotein I Ab. IgG <10 SGU (<=20); Beta-2-Glycoprotein I Ab. IgM <10 SMU (<=20)
[2023-05-05 12:49] LABS: Cardiolipin IgA Antibody <10 APL (<=11); Cardiolipin IgM Antibody <10 MPL (<=12); Cardiolipin Igg Antibody <10 GPL (<=14)
[2023-05-06 01:25] LABS: Phosphatidylserine Ab, IgA 0 APS (0-19); Phosphatidylserine Ab, IgG 11 GPS (0-15); Phosphatidylserine Ab, IgM 0 MPS (0-21)
== END 2023-05-03 12:30 | disposition home or self-care (01) | DRG 176 ==
LOC: 4 EAST ACU 20:27
PROVIDERS: Clinical Nurse Specialist Family Health; Internal Medicine; ADMITTING PHYSICIAN Hospitalist; ATTENDING PHYSICIAN Internal Medicine; EMERGENCY PHYSICIAN Emergency Medicine; FAMILY PHYSICIAN Internal Medicine; OTHER PHYSICIAN Internal Medicine Hematology & Oncology; OTHER PHYSICIAN Nurse Practitioner Family
DX: I26.99 Other pulmonary embolism without acute cor pulmonale (principal); C50.919 Malignant neoplasm of unspecified site of unspecified female breast; C79.51 Secondary malignant neoplasm of bone; N17.9 Acute kidney failure, unspecified; I11.9 Hypertensive heart disease without heart failure; D53.9 Nutritional anemia, unspecified; H90.3 Sensorineural hearing loss, bilateral; K80.20 Calculus of gallbladder without cholecystitis without obstruction; Z79.01 Long term (current) use of anticoagulants
CPT/HCPCS: 80048; 80053; 82607; 82746; 83010; 83615; 83735; 84443; 85025; 85027; 85045; 85379; 85610; 85730; 86146; 86147; 86148; 93306; 93970; 97165; 99285

== ENCOUNTER → 2023-06-20 10:46 | Outpatient (REF) | payer OTHER, SELFPAY ==
[2023-06-20 11:45] VITALS: BP 162/82; BP_SYST 70
[2023-06-20 11:47] LABS: % Basophils 1.8 % (0-2); % Eosinophils 2.4 % (0-6); % Immature Granulocytes 0.3 % (0-0.5); % Lymphocytes 48.8 % (20.5-51.1); % Monocytes 7.9 % (1.7-9.3); % Neutrophils 38.8 % (42.2-75.2); Absolute Basophils 0.1 10^3/uL (0-0.2); Absolute Eosinophils 0.1 10^3/uL (0-0.7); Absolute Lymphocytes 1.6 10^3/uL (1.2-3.4); Absolute Monocytes 0.3 10^3/uL (0.1-0.6); Absolute Neutrophils 1.3 10^3/uL (1.4-6.5); Hematocrit 30.8 % (37.0-47.0); Hemoglobin 10.7 g/dL (12.0-16.0); Mean Corp Hgb Conc. 34.7 g/dL (33.0-37.0); Mean Corpuscular Hgb 37.9 pg (27.0-31.0); Mean Corpuscular Volume 109.2 fL (81.0-99.0); Mean Platelet Volume 10.4 fL (7.4-10.4); Nucleated Red Blood Cells % 0 %; Platelet Count 150 10^3/uL (130-400); Red Blood Cell Count 2.82 10^6/uL (4.20-5.40); Red Cell Dist. Width 14.3 % (11.5-14.5); White Blood Cell Count 3.3 10^3/uL (4.8-10.8)
[2023-06-20 11:56] LABS: INR 1.11; PT 14.2 Sec (11.4-14.6)
[2023-06-20] MEDS: NSS (PRESERVATIVE FREE) 0.25 ML IV (12:26)
[2023-06-20] MEDS: ATIVAN 0.5 MG IV (12:26)
[2023-06-20 13:11] VITALS: BP 150/100; BP_SYST 103
[2023-06-20 13:23] VITALS: BP 144/82
== END ==
LOC: RADI 10:46
PROVIDERS: ATTENDING PHYSICIAN Internal Medicine Hematology & Oncology; FAMILY PHYSICIAN Internal Medicine
DX: D61.818 Other pancytopenia (principal); D68.8 Other specified coagulation defects; C50.512 Malignant neoplasm of lower-outer quadrant of left female breast; C79.51 Secondary malignant neoplasm of bone; G89.3 Neoplasm related pain (acute) (chronic); R93.41 Abnormal radiologic findings on diagnostic imaging of renal pelvis, ureter, or bladder
CPT/HCPCS: 88305; 88311; 88312; 36415; 38222; 77012; 85025; 85610; 88313; 88341; 88342

== ENCOUNTER → 2023-10-24 10:56 | Outpatient (REF) | payer OTHER, SELFPAY | LOC: RAD 10:56 | PROVIDERS: ATTENDING PHYSICIAN Internal Medicine Hematology & Oncology; FAMILY PHYSICIAN Internal Medicine | DX: C50.512 Malignant neoplasm of lower-outer quadrant of left female breast (principal); Z51.89 Encounter for other specified aftercare; D69.6 Thrombocytopenia, unspecified; C79.51 Secondary malignant neoplasm of bone; G89.3 Neoplasm related pain (acute) (chronic); R93.41 Abnormal radiologic findings on diagnostic imaging of renal pelvis, ureter, or bladder; D52.9 Folate deficiency anemia, unspecified; D51.9 Vitamin B12 deficiency anemia, unspecified | CPT/HCPCS: 71260; 74177; Q9967 ==

== ENCOUNTER → 2024-04-08 12:30 | Outpatient (REF) | payer OTHER, SELFPAY | LOC: RAD 12:30 | PROVIDERS: ATTENDING PHYSICIAN Internal Medicine | DX: M25.511 Pain in right shoulder (principal); M12.811 Other specific arthropathies, not elsewhere classified, right shoulder | CPT/HCPCS: 73030 ==

== ENCOUNTER → 2024-06-04 12:37 | Outpatient (REF) | payer OTHER, SELFPAY | LOC: RAD 12:37 | PROVIDERS: ATTENDING PHYSICIAN Internal Medicine | DX: M25.561 Pain in right knee (principal) | CPT/HCPCS: 73564; 73590 ==

== ENCOUNTER → 2024-06-16 07:07 | Outpatient (REF) | payer OTHER, SELFPAY | LOC: MRI 07:07 | PROVIDERS: ATTENDING PHYSICIAN Internal Medicine | DX: M12.811 Other specific arthropathies, not elsewhere classified, right shoulder (principal); C50.912 Malignant neoplasm of unspecified site of left female breast | CPT/HCPCS: 73221 ==

== ENCOUNTER → 2024-10-28 10:05 | Outpatient (REF) | payer OTHER, SELFPAY ==
[2024-10-28 10:15] LABS: Glucose 101 mg/dl (70-99)
== END ==
LOC: PET 10:05
PROVIDERS: ATTENDING PHYSICIAN Internal Medicine Hematology & Oncology
DX: C50.512 Malignant neoplasm of lower-outer quadrant of left female breast (principal); Z51.89 Encounter for other specified aftercare; D69.6 Thrombocytopenia, unspecified; C79.51 Secondary malignant neoplasm of bone; G89.3 Neoplasm related pain (acute) (chronic); R93.41 Abnormal radiologic findings on diagnostic imaging of renal pelvis, ureter, or bladder; D52.9 Folate deficiency anemia, unspecified; D51.9 Vitamin B12 deficiency anemia, unspecified
CPT/HCPCS: 36415; 82947